=== PATIENT | female | born 1950 | race Hispanic/Latino ===

== ENCOUNTER 2016-08-05 13:32 | Emergency (ER) | payer MEDICARE, OTHER ==
[2016-08-05 13:41] VITALS: BP 144/74; PULSE 95; RESP 20; TEMP 97.9; O2SAT 97
--- NOTE | 2016-08-05 13:54 | ED PDOC ---
Lower Extremity Pain/Injury Time Seen by Provider: 08/05/16 13:46 Chief Complaint (Nursing): Lower Extremity Problem/Injury Chief Complaint (Provider): left leg pain History Per: Patient History/Exam Limitations: no limitations Additional Complaint(s): 65yo F in ED for eval left foot ankle pain x"many months" made wrose in past 3 weeks was seen at pmd MD Sulaiman was Rx peroctets without relief. pt states pain is worse in the AM or after prolonged supine(reclined) position-throbbing full sensation.no acute injury. no known hx of arthritis. - Ankle/Foot Feet: 1 - pain - Risk Factors DVT Risk Factors: Pos: None Past Medical History Reviewed: Historical Data, Nursing Documentation, Vital Signs Vital Signs: Last Vital Signs Temp 97.9 F 08/05/16 13:38 Pulse 95 H 08/05/16 13:38 Resp 20 08/05/16 13:38 BP 144/74 08/05/16 13:38 Pulse Ox 97 08/05/16 13:38 - Medical History PMH: HTN - Surgical History Surgical History: Endoscopy - Family History Family History: States: No Known Family Hx - Home Medications Home Medications: Ambulatory Orders Medication Instructions Recorded Ondansetron ODT [Zofran ODT] 4 mg PO Q6 PRN #16 odt 03/30/16 - Allergies Allergies/Adverse Reactions: Allergies Allergy/AdvReac Type Severity Reaction Status Date / Time No Known Allergies Allergy Verified 03/29/16 22:01 Review of Systems ROS Statement: Except As Marked, All Systems Reviewed And Found Negative Musculoskeletal: Positive for: Foot Pain Physical Exam - Reviewed Nursing Documentation Reviewed: Yes Vital Signs Reviewed: Yes - Physical Exam Appears: Positive for: Well, Non-toxic, No Acute Distress Head Exam: Positive for: ATRAUMATIC, NORMAL INSPECTION, NORMOCEPHALIC Skin: Positive for: Normal Color, Warm, DRY Cardiovascular/Chest: Positive for: Regular Rate, Rhythm Respiratory: Positive for: Normal Breath Sounds Back: Positive for: Normal Inspection Extremity: Positive for: Other (lft ankle: swelling to lateral aspect/tenderness /no dec ROM. nuerovasc intact. ) Neurologic/Psych: Positive for: Alert, Oriented - ECG O2 Sat by Pulse Oximetry: 97 - Radiology X-Ray: Interpreted by Me (bony spur noted to foot. FB noted to ankle-admits to surgery "years" ago. ) - Progress ED Course And Treament: pt will get xray Medical Decision Making Medical Decision Making: pt given surgical shoe advised to f.u with podiatry and continue Tylenol for pain. Disposition - Clinical Impression Clinical Impression: Foot injury - Patient ED Disposition Is Patient to be Admitted: No Counseled Patient/Family Regarding: Studies Performed, Diagnosis, Need For Followup - Disposition Referrals: Podiatry Clinic [Outside] Disposition: Routine/Home Disposition Time: 15:50 Condition: STABLE Instructions: Heel Spur (ED) Print Language: FRISIAN
--- NOTE | 2016-08-06 06:50 | RAD ---
HISTORY: injury COMPARISON: No prior FINDINGS: BONES: Normal. No fracture. JOINTS: Normal. No osteoarthritis. SOFT TISSUE: Normal. OTHER FINDINGS: Plantar heel spur. Surgical clip in the medial malleolar soft tissues.. IMPRESSION: As above.
--- NOTE | 2016-08-06 06:55 | RAD ---
PROCEDURE: Left Foot Radiographs. HISTORY: injury COMPARISON: None. FINDINGS: BONES: Normal. No fracture. JOINTS: Normal. SOFT TISSUES: Normal. OTHER FINDINGS: None. IMPRESSION: Normal left foot radiographs.
== END 2016-08-05 16:36 | disposition home or self-care (01) ==
LOC: H.ER 13:32
DX: M79.672 Pain in left foot (principal); I10 Essential (primary) hypertension